=== PATIENT | female | born 2000 | race American Indian/Alaskan Native ===

== ENCOUNTER 2020-08-04 14:34 | Outpatient (CLI) | payer OTHER ==
[2020-08-04] MEDS ORDERED: IRON325 MG PO (14:52)
[2020-08-04] MEDS ORDERED: FOLIC ACID20 MG PO (14:52)
[2020-08-04] MEDS ORDERED: PRENATAL TABLE1 EAC1 PO (14:53)
== END 2020-08-05 11:00 | disposition home or self-care (01) ==
LOC: OBS/DEL 14:34
PROVIDERS: ATTEND Obstetrics & Gynecology
DX: O26.893 Other specified pregnancy related conditions, third trimester (principal); N93.0 Postcoital and contact bleeding; Z3A.29 29 weeks gestation of pregnancy

== ENCOUNTER 2020-09-16 13:04 | Outpatient (CLI) | payer OTHER ==
[~2020-09-16 13:04] MED LIST: FOLIC ACID20 MG PO; IRON325 MG PO; PRENATAL TABLE1 EAC1 PO
== END 2020-09-17 10:17 | disposition home or self-care (01) ==
LOC: OBS/DEL 13:04
PROVIDERS: ATTEND Obstetrics & Gynecology
DX: O23.43 Unspecified infection of urinary tract in pregnancy, third trimester (principal); Z3A.35 35 weeks gestation of pregnancy

== ENCOUNTER 2020-10-02 15:30 | Inpatient (IN) | payer OTHER ==
[~2020-10-02] VITALS: Ht 165.1 cm; Wt 121.1 kg
[2020-10-15] MEDS ORDERED: CHILDREN'S ASPI81 MG PO (21:58)
== END 2020-10-18 15:12 | disposition home or self-care (01) | DRG 807 ==
LOC: LDR 10-15 23:03 → OB/GYN 10-15 23:03 → LDR 10-15 23:17 → OB/GYN 10-16 10:16 → LDR 10-20 15:30
PROVIDERS: ADMIT Obstetrics & Gynecology; ATTEND Obstetrics & Gynecology
PROC: 10E0XZZ Delivery of Products of Conception, External Approach (ICD-10-PCS; principal; 2020-10-15)
PROC: 0HQ9XZZ Repair Perineum Skin, External Approach (ICD-10-PCS; 2020-10-15)
PROC: 10907ZC Drainage of Amniotic Fluid, Therapeutic from Products of Conception, Via Natural or Artificial Opening (ICD-10-PCS; 2020-10-15)
PROC: 4A1HXFZ Monitoring of Products of Conception, Cardiac Rhythm, External Approach (ICD-10-PCS; 2020-10-15)
DX: O76 Abnormality in fetal heart rate and rhythm complicating labor and delivery (principal); Z37.0 Single live birth; Z3A.39 39 weeks gestation of pregnancy; Z20.822 Contact with and (suspected) exposure to COVID-19

== ENCOUNTER → 2020-10-15 | Outpatient (CLI) | payer OTHER ==
[~2020-10-15] MED LIST changes: +CHILDREN'S ASPI81 MG PO
== END | disposition still patient (30) ==
LOC: OBS/DEL 19:01
PROVIDERS: ATTEND Obstetrics & Gynecology
DX: O47.1 False labor at or after 37 completed weeks of gestation (principal); Z3A.39 39 weeks gestation of pregnancy; Z20.822 Contact with and (suspected) exposure to COVID-19